=== PATIENT | male | born 1950 | race Caucasian/White ===

== ENCOUNTER → 2023-10-26 14:05 | Outpatient (REF) | payer MEDICARE, SELFPAY | LOC: HWRAD 14:05 | PROVIDERS: ATTENDING PHYSICIAN Family Medicine; REFERRING PHYSICIAN Internal Medicine Critical Care Medicine | DX: R05.3 Chronic cough (principal) | CPT/HCPCS: 71250 ==

== ENCOUNTER → 2024-12-05 07:36 | Outpatient (REF) | payer MEDICARE, SELFPAY | LOC: HWRAD 07:36 | PROVIDERS: ATTENDING PHYSICIAN Internal Medicine Critical Care Medicine; FAMILY PHYSICIAN Family Medicine; OTHER PHYSICIAN Internal Medicine; OTHER PHYSICIAN Internal Medicine Cardiovascular Disease | DX: Z87.891 Personal history of nicotine dependence (principal) | CPT/HCPCS: 71271 ==